=== PATIENT | male | born 1945 | race Caucasian/White ===

== ENCOUNTER → 2019-01-14 | Outpatient (CLI) | payer MEDICARE, OTHER ==
--- NOTE | 2019-01-14 10:27 | KCIC ---
MRI left knee without contrast dated 01/14/2019. No comparison available. CLINICAL INDICATION: Palpable lump medial left knee. Chronic pain. TECHNIQUE: Routine multiplanar multisequence MR imaging left knee performed. No contrast administered. FINDINGS: Moderate tricompartmental hypertrophic change with small marginal osteophytes. Thinning and surface irregularity of the articular cartilage throughout. Broad zones of full-thickness cartilage loss over the weightbearing surfaces medial femoral condyle and medial tibial plateau with subchondral cystic change and subchondral edema. There is also full-thickness chondral is loss at the medial and lateral patellar facet and patellar apex with near full-thickness cartilage loss at the medial and lateral femoral trochlea. Small joint effusion. No intra-articular loose body. No significant popliteal cyst. No apparent soft tissue mass. Anterior cruciate and posterior cruciate ligaments intact. Medial and lateral collateral complexes intact. Iliotibial band, popliteus tendon and pes anserine complex within normal limits. Quadriceps and patellar tendon are intact. No abnormality of the medial or lateral retinaculum. Small oblique tear at the medial meniscal body extends to the tibial articular surface. There is also blunting of the free edge of the posterior horn and body with small oblique tear extending into the posterior horn. Lateral meniscus is normal in morphology and signal. IMPRESSION: 1. 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 There is full-thickness cartilage loss throughout the medial compartment. 2. Complex tear posterior horn/body of medial meniscus. 3. Small joint effusion. Electronically signed by: Sourav Jett MD (01/14/2019 10:24 AM) [id number]
== END | disposition home or self-care (01) ==
LOC: KCIC MRI 09:17
PROVIDERS: ATTEND Physician Assistant Medical
DX: S83.242A Other tear of medial meniscus, current injury, left knee, initial encounter (principal); M25.762 Osteophyte, left knee; M25.462 Effusion, left knee; M89.38 Hypertrophy of bone, other site; G89.29 Other chronic pain; X58.XXXA Exposure to other specified factors, initial encounter; Y93.89 Activity, other specified; Y92.89 Other specified places as the place of occurrence of the external cause; Y99.8 Other external cause status
CPT/HCPCS: 73721